=== PATIENT | female | born 1975 | race Hispanic/Latino ===

== ENCOUNTER 2017-06-01 13:02 | Outpatient (CLI) | payer OTHER ==
--- NOTE | 2017-06-01 14:07 | RAD ---
FOUR VIEWS LEFT KNEE: History: Pain. Swelling. Popping noise. Comparison: None. FINDINGS: No significant joint effusion. Minimal degenerative change of the patellofemoral compartment. No frac ture or malalignment. IMPRESSION: Minimal degenerative change. POS: [facility]
--- NOTE | 2017-06-01 14:07 | RAD ---
4 VIEWS RIGHT KNEE: Date: 06/01/17 HISTORY: Pain, swelling, and popping noise. COMPARISON: None. FINDINGS: No joint effusion. No fracture or malalignment. Joint spaces are preserved. IMPRESSION: Unremarkable 4 views right knee. POS: [facility]
[2017-06-04 12:49] LABS: ANA Symphony (Qualitative) Negative (Negative); CCP IgG Antibody 3.2 EliAU/mL (<7 Negative); EliA RAS New Method **** NEW METHOD ****; Rheumatoid Factor IgA Antibody 1.4 IU/mL (<14 Negative); Rheumatoid Factor IgM Antibody 1.5 IU/mL (<3.5 Negative); dsDNA IgG Antibody 3.2 IU/mL (<10 Negative)
== END 2017-06-01 13:03 | disposition home or self-care (01) ==
LOC: SCSRAD 13:02
PROVIDERS: ATTEND Family Medicine
DX: M25.561 Pain in right knee (principal); M25.562 Pain in left knee; M25.50 Pain in unspecified joint; M46.1 Sacroiliitis, not elsewhere classified
CPT/HCPCS: 36415; 83520; 86038; 86200; 86225

== ENCOUNTER 2017-06-07 07:49 | Outpatient (CLI) | payer OTHER ==
--- NOTE | 2017-06-07 10:00 | ULT ---
ABDOMINAL ULTRASOUND: Date: 06/07/17 HISTORY: Chronic abdominal pain, cramping, and diarrhea. FINDINGS: Real-time images of the upper abdomen were performed. These show a normal sized gallbladder with some questionable minimal sludge present. No gallbladder wall thickening. The common duct is 3.0 mm. Visu alized liver parenchyma shows no focal findings. The spleen is 9.1 cm in length. Pancreas is obscured . Right and left kidneys are normal in size and nonobstructed. Small upper pole right renal cyst is n oted measuring 1.5 cm in size. It appears to have a thin internal septation. Abdominal aorta and IVC regions appear unremarkable. Portions of the abdominal aorta are obscured. IMPRESSION: Essentially unremarkable abdominal ultrasound. Questionable minimal sludge within the gallbladder. POS: [facility]
== END 2017-06-07 07:50 | disposition home or self-care (01) ==
LOC: SCSULT 07:49
PROVIDERS: ATTEND Internal Medicine Gastroenterology
DX: R10.9 Unspecified abdominal pain (principal)
CPT/HCPCS: 76700

== ENCOUNTER 2017-06-19 07:21 | Day surgery (SDC) | payer OTHER ==
[2017-06-18 10:53] VITALS: BMI 23.2
--- NOTE | 2017-06-19 00:04 | HP ---
SHORT STAY HISTORY AND PHYSICAL DATE OF ADMISSION: 06/19/2017 HISTORY OF PRESENT ILLNESS: This is a 41-year-old female seen in my hospital with abdominal pain, na usea, vomiting, and diarrhea. Apparently, she has had symptoms off and on over the years. The pain is across the upper abdomen. The pain also goes over to the lower abdomen. The pain is crampy and i s worse after meals. She has nausea with abdominal pain. She has no fever. She also gives history of diarrhea off and on. The stools are watery. The patient comes for EGD because of abdominal pain and possible colonoscopy. ALLERGIES: None. SOCIAL HISTORY: The patient does not smoke or drink alcohol. MEDICAL ILLNESSES: None. SURGERIES: 1. Hysterectomy. 2. Breast surgery. PHYSICAL EXAMINATION: VITAL SIGNS: Pulse is 70, blood pressure 130/80. HEENT: Conjunctivae clear. CARDIOVASCULAR SYSTEM: First and second heart sounds normal. LUNGS: Clear to auscultation. ABDOMEN: Abdomen is soft to palpate. Abdomen is tender across the upper abdomen. There is no rebou nd or guarding. No organomegaly. No masses. Bowel sounds normal. ADMITTING DIAGNOSES: Abdominal pain and intermittent diarrhea. PLAN: EGD and colonoscopy.
--- NOTE | 2017-06-19 12:07 | OP ---
DATE OF PROCEDURE: 06/19/2017 SURGEON: Meg Kelly M.D. OPERATIVE PROCEDURE: Esophagogastroduodenoscopy with biopsy. PREOPERATIVE DIAGNOSIS: Abdominal pain. POSTOPERATIVE DIAGNOSES: 1. Mild gastritis. 2. Otherwise, the exam is normal. 3. The rectal examination failed reveal abdominal pain. PROCEDURE IN DETAIL: The patient was placed on her left lateral position and was given sedation by [facility]. A [employer] video gastroscope under direct vision passed through the orophary nx, past the GE junction, into the stomach and subsequently the descending duodenum. The esophageal mucosa appeared normal. The GE junction, no pathology seen. The fundus and cardia, no pathology see n. Over the proximal gastric body, there was focal edema and erythema. There was also some antral g astritis. Biopsy of the antrum and gastric antrum and gastric body. The incisural angularis, no pat hology seen. The duodenal bulb and descending duodenum, no pathology seen. The stomach was decompre ssed and the scope removed. DISCHARGE PLANNING: This is a 41-year-old female who came for an EGD for abdominal pa in. The patient had previously had an abdominal sonogram, which came back negative. The EGD showed mild gastritis and the findings are actually minimal and does not explain the patient's symptoms. PLAN: Await the gastric biopsy. If the biopsy shows Helicobacter will treat accordingly. If the ab dominal pain persists, will consider a HIDA scan.
[2017-06-19] MEDS ORDERED: Lidocaine 1% PF 5 ML VIAL ONE (14:21)
[2017-06-19] MEDS ORDERED: PROPOFOL 200 MG/20 ML VIAL ONE (14:21)
== END 2017-06-19 11:12 | disposition home or self-care (01) ==
LOC: SDC 07:21
PROVIDERS: ATTEND Internal Medicine Gastroenterology
PROC: 0DB78ZX Excision of Stomach, Pylorus, Via Natural or Artificial Opening Endoscopic, Diagnostic (ICD-10-PCS; principal; 2017-06-19)
DX: K29.50 Unspecified chronic gastritis without bleeding (principal); Z79.52 Long term (current) use of systemic steroids; Z79.899 Other long term (current) drug therapy
CPT/HCPCS: 88305; 88312; J2001; J2704

== ENCOUNTER 2018-05-17 12:38 | Outpatient (CLI) | payer OTHER ==
--- NOTE | 2018-05-17 13:54 | MRI ---
MRI lumbar spine noncontrast: HISTORY: Low back pain. Patient fell 2 years ago. Hip and leg pain. COMPARISON: None FINDINGS: Appropriate T1 marrow signal intensity of the lumbar vertebra. Lumbar spine vertebral body height is maintained. No fracture. No significant STIR hyperintensity to suggest vertebral body edema or ligamentous injury Appropriate signal intensity in the visualized solid organs. Appropriate signal intensity in the para spinal muscles. Conus medullaris terminates at the mid L1 level In the thoracic cord at the T12 level, there is a central T2 hyperintensity which is slightly more pr ominent at the inferior endplate of T12. 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 However, given it is T2 hyperintense lesion is only seen the distal cord, postcontrast imaging is recommended to exclude poss ible intramedullary lesion. T12-L1:Adequate disc hydration. No significant central canal stenosis or neural foraminal narrowing L1-2:Adequate disc hydration. No significant central canal stenosis or neural foraminal narrowing L2-3:Adequate disc hydration. No significant central canal stenosis or neural foraminal narrowing L3-4:Normal loss of disc space height. No significant central canal stenosis or foraminal narrowing L4-5:Adequate disc hydration. No significant central canal stenosis or foraminal narrowing. Mild bila teral facet hypertrophy L5-S1:Adequate disc hydration. No significant central canal stenosis or foraminal narrowing. Incidental T2 hyperintensities involving the right neural foramen at T11-T12 and T12-L1 likely repres enting perineural sleeve cysts. IMPRESSION: 1. No significant central canal stenosis or neural foraminal narrowing. 2. T2 hyperintensity involving the distal thoracic cord as described above. Postcontrast imaging is r ecommended.
--- NOTE | 2018-05-17 13:56 | MRI ---
Exam: MRI cervical spine without contrast HISTORY: Spondylolisthesis right shoulder pain. Fall 2 years ago.. COMPARISON: None FINDINGS: Appropriate T1 marrow signal intensity of the cervical vertebra. Vertebral body height is maintained . No fracture. No significant STIR hyperintensity to suggest vertebral body edema or ligamentous injury. Because brain parenchyma, cervical medullary junction, cervical cord and the visualized upper thoraci c cord have a normal size and signal intensity. C2-C3: No significant central canal stenosis or neural foraminal narrowing C3-C4: No significant central canal stenosis or neural foraminal narrowing C4-C5: No significant central canal stenosis or neural foraminal narrowing C5-C6: No significant central canal stenosis or neural foraminal narrowing C6-C7: No significant central canal stenosis or foraminal narrowing possible. Possible perineural sle jose eduardo cyst in the right neural foramen C7-T1: No significant central canal stenosis or neural foraminal narrowing. Bilateral perineural slee ve cysts. IMPRESSION: No significant central canal stenosis or neural foraminal narrowing.
== END 2018-05-17 12:39 | disposition home or self-care (01) ==
LOC: TBSIIMAG 12:38
PROVIDERS: ATTEND Neurological Surgery
DX: M54.2 Cervicalgia (principal); M54.5 Low back pain
CPT/HCPCS: 72141; 72148

== ENCOUNTER 2018-07-23 14:10 | Outpatient (CLI) | payer OTHER ==
--- NOTE | 2018-07-23 18:19 | MRI ---
EXAM: LUMBAR SPINE MRI WITH AND WITHOUT CONTRAST: 07/23/18 COMPARISON: 05/17/18. HISTORY: Abnormal signal intensity in the distal thoracic cord. Pre and postcontrast imaging is recommended. TECHNIQUE: MRI of the lumbar spine is performed with and without intravenous gadolinium administration. Multiseq uential, multiplanar imaging is performed. FINDINGS: Appropriate T1 narrow signal intensity of the thoracic vertebrae. Vertebral body height is maintained . No fracture. No significant STIR hyperintensity to suggest vertebral body edema or ligamentous inju ry. Appropriate signal intensity of the visualized paraspinal muscles. Appropriate signal intensity of th e visualized solid organs. There is a central T2 hyperintensity of the distal aspect of the thoracic cord. There is no evidence of associated enhancement. A short syrinx of the distal thoracic cord is favored. There is no abnorma l enhancement within the thecal sac including the cauda equina and conus medullaris. There is no significant central canal stenosis or neural foraminal narrowing throughout the visualize d lumbar spine. IMPRESSION: T2 hyperintensity involving the distal aspect of the thoracic cord without associated enhancement. Sh ort segment syrinx is favored. POS: [facility]
== END 2018-07-23 14:11 | disposition home or self-care (01) ==
LOC: TBSIIMAG 14:10
PROVIDERS: ATTEND Neurological Surgery
DX: G95.0 Syringomyelia and syringobulbia (principal); R90.89 Other abnormal findings on diagnostic imaging of central nervous system
CPT/HCPCS: 72158